=== PATIENT | female | born 1980 | race African-American/Black ===

== ENCOUNTER 2019-12-26 13:51 | Outpatient (CLI) | payer SELFPAY ==
--- NOTE | 2019-12-26 | US_ITS ---
WS: [id number] TRANSABDOMINAL PELVIC ULTRASOUND HISTORY: PELVIC PAIN IN FEMALE COMPARISON: None available. Uterus: 8.5 cm x 6.2 cm x 4.5 cm. Normal size and echogenicity. No fibroids are identified. Endometrium: .7 cm. Normal homogeneity and size. Right ovary: 2.2 cm x 2.7 cm x 1.7 cm; no solid or cystic mass. Normal vascularity. Left ovary: 2.7 cm x 2.4 cm x 1.9 cm; no solid or cystic mass. Small follicle within the LEFT ovary w ith a maximum diameter 1.7 cm. No solid mass. Normal vascularity. No free fluid in the cul-de-sac. US/US pelvic complete* [id number] IMPRESSION: Unremarkable transabdominal pelvic ultrasound.
== END 2019-12-26 13:52 | disposition home or self-care (01) ==
LOC: RADOUTREAD 12-27 07:29
PROVIDERS: Visit Provider Nurse Practitioner Family
DX: Z01.89 Encounter for other specified special examinations (principal)